=== PATIENT | male | born 1950 | race Caucasian/White ===

== ENCOUNTER → 2023-05-12 09:19 | Outpatient (CLI) | payer MEDICARE, OTHER, SELFPAY ==
--- NOTE | 2023-05-12 | DI.ECHO.S_ITS ---
[facility] +---------+ : : [address] : : : : [id number] : : : : Phone: [phone]+ Echocardiogram Report + + :Name: TONJA BETHEA Study Date: 05/12/2023 Height: 74 in : :[facility] ReadingLocation: Weight: 215 lb : : Gender: Male BSA: 2.2 m2 : :: 1950 Age: 72 yrs BP: 132/80 mmHg: :Reason For Study: DYSPNEA ON EXERTION : :Ordering Physician: CADE, : :REBEL Performed By: Malia Juárez : :Referring: REBEL UP : + + Interpretation Summary 1) Normal left ventricular thickness, size, wall motion, and systolic function (EF 60-65%). 2) Normal right ventricular size with low normal function. 3) The left atrium is severely dilated, 4) There is mild mitral regurgitation. 5) No prior Echo available for comparison. Procedure: A two-dimensional transthoracic echocardiogram with color flow and Doppler was performed. The study quality was technically adequate. There is no prior echocardiogram noted for this patient. The patient was in sinus rhythm with heart rates between 61-73 bpm during the exam. Left Ventricle: The left ventricle is normal in size and wall thickness. The ejection fraction is estimated to be 60-65%. Left ventricular systolic function appears normal without focal wall motion abnormalities. Diastolic parameters suggest a relaxation abnormality of the left ventricle, consistent with probable normal filling pressures. Right Ventricle: The right ventricle is normal size. Right ventricular systolic function is at the lower limits of normal. Atria: The left atrium is severely dilated. Right atrial size is normal. There is no Doppler evidence for an interatrial shunt. Mitral Valve: The mitral valve is grossly normal. There is mild mitral regurgitation. Aortic Valve: The aortic valve is trileaflet. There is mild aortic valve sclerosis. There is no aortic valve stenosis. No aortic regurgitation is present. Tricuspid Valve: The tricuspid valve is normal in structure and function. There is mild tricuspid regurgitation. The right ventricular systolic pressure is estimated to be at least 30 mmHg based on an estimated right atrial pressure of 8 mm Hg. Pulmonic Valve: The pulmonic valve leaflets are thin and pliable; valve motion is normal. There is trace pulmonic regurgitation. Great Vessels: The aortic root is normal size. The dimensions of the ascending aorta are normal. The IVC is dilated (diameter is greater than 2.1 cm) yet it collapses greater than 50% with a sniff. This suggests a right atrial pressure of 8 mm Hg. Pericardium/ Pleura There is no pericardial effusion. There is no pleural effusion. MMode/2D Measurements & Calculations LVIDd: 4.9 cm LVOT diam: 2.1 cm LVIDs: 3.1 cm Ao root diam: 3.1 cm FS: 36.0 % asc Aorta Diam: 3.2 cm IVSd: 0.96 cm Ao Arch Diam (Prox Trans): 3.3 cm LVPWd: 1.1 cm LV yeh. diameter/BSA (cm/m^2): 2.2 LV sys. diameter/BSA (cm/m^2): 1.4 LA A2 area: 32.9 cm2 RA long axis: 5.7 cm LA A4 area: 30.2 cm2 RA area: 21.7 cm2 LA length (vol): 6.9 cm RA vol: 70.0 ml LA vol: 121.6 ml RA : 31.2 ml/m2 LA vol index: 54.3 ml/m2 IVC diam: 2.6 cm RVD1 (basal): 3.9 cm RVD2 (mid): 2.8 cm TAPSE: 1.6 cm Doppler Measurements & Calculations Ao V2 max: 133.6 cm/sec LVOT Max Wisam: 105.9 cm/sec Ao V2 mean: 93.7 cm/sec LV V1 max P.5 mmHg Ao max P.2 mmHg LV V1 VTI: 19.8 cm Ao mean P.9 mmHg GAYATHRI(I,D): 2.6 cm2 Ao V2 VTI: 26.4 cm GAYATHRI(V,D): 2.7 cm2 sev ratio: 0.75 GAYATHRI indexed to BSA (cm^2/m^2): 1.1 MV E max wisam: 86.1 cm/sec TR max wisam: 234.2 cm/sec MV A max wisam: 1.6 cm/sec TR max P.9 mmHg MV E/A: 54.9 PA V2 max: 119.3 cm/sec Med Peak E' Wisam: 7.9 cm/sec PA V2 mean: 88.8 cm/sec E/E' med: 10.8 PA mean P.5 mmHg Lat Peak E' Wisam: 11.8 cm/sec PA pr(Accel): 32.8 mmHg E/E' lat: 7.3 E/e' average: 9.1 MV dec time: 0.25 sec SV(LVOT): 67.3 ml Reading Physician:12:26 PM
--- NOTE | 2023-05-13 11:06 | DI.NM.S_ITS ---
DATE OF SERVICE: PROCEDURE: Pharmacological perfusion study. INDICATIONS: Shortness of breath with underlying persistent atrial fibrillation, hypertension. RADIOPHARMACEUTICAL: 25.5 millicurie technetium-99m Myoview IV was injected at stress and 12.7 millicurie technetium-99m Myoview IV was injected at rest. CARDIAC STRESS: The patient underwent IV Lexiscan perfusion study under the supervision of an attending staff using standard IV Lexiscan as per protocol. The patient remained hemodynamically stable. Resting blood pressure 138/92. Baseline rhythm AFib with controlled rate. During stress, no convincing new ischemic changes seen. No new significant arrhythmias seen. The patient has mild shortness of breath with Lexiscan infusion. RAW DATA: The patient's weight is 215 pounds. Increased subdiaphragmatic activity. GATED STUDY: Resting LV ejection fraction 67 and stress LV ejection fraction 71% without any obvious wall motion abnormalities. Resting end-diastolic volume 123 mL. TID ratio 0.94, which is within normal limits. Lung/heart ratio 0.33, which is within normal limits. MYOCARDIAL PERFUSION SCAN: Stress supine, resting supine and stress prone images were compared to each other. Stress supine and resting supine images revealed small size, mildly decreased perfusion of basal inferior wall as well as distal anterior wall, which got resolved during stress prone images suggestive of tissue attenuation artifact. No convincing ischemia or infarction pattern seen. CONCLUSION: I will call this study likely a normal myocardial perfusion study with evidence of tissue attenuation artifact, which got improved during stress prone images. Preserved left ventricular function. Baseline persistent atrial fibrillation. Rate is controlled. Overall, low-risk myocardial perfusion scan. Hal Rand - SAMUEL/brandee/soraida doc#: [id number]/job#: [id number] dd: 05/12/2023 16:59:00 dt: 05/12/2023 21:19:00 DICTATING MD/COPIES TO: Jayro Zapata MD COPIES MNE: SNEHAL;
== END ==
PROVIDERS: PCP Family Medicine; Referring Provider Internal Medicine Cardiovascular Disease; Visit Provider Internal Medicine Cardiovascular Disease
DX: I08.3 Combined rheumatic disorders of mitral, aortic and tricuspid valves (principal); R06.09 Other forms of dyspnea
CPT/HCPCS: 78452; 93017; 93306; A9502; J2785

== ENCOUNTER 2024-03-02 20:43 | Emergency (ER) | payer MEDICARE, OTHER, SELFPAY ==
[2024-03-02] VITALS (7 sets, daily range): BP systolic 130–149; BP diastolic 67–91; PULSE 72–85; RESP 16; TEMP 36.9; O2SAT 96–98; BMI 27.8
--- NOTE | 2024-03-02 21:02 | DI.RAD.S_ITS ---
PROCEDURE: XR HAND RT MIN 3V INDICATIONS: cut on wire/redness/streaking/swelling TECHNIQUE: 3 views of the hand(s) acquired. COMPARISON: None. FINDINGS: Bones: No fractures or dislocations. Degenerative changes of the interphalangeal joints. Carpal bones are normally aligned. No suspicious bony lesions. Soft tissues: No suspicious soft tissue calcifications. IMPRESSION: No acute bony abnormality. Dictated by: Mitesh Nickerson M.D. on 03/02/2024 at 21:28 Approved by: Mitesh Nickerson M.D. on 03/02/2024 at 21:28
[2024-03-02 21:30] LABS: Add Manual Diff / Slide Review NO; Basophils Absolute Auto 0 /uL (0-100); Basophils Percent Auto 0.3 % (0-2); Eosinophils Absolute Auto 200 /uL (0-450); Eosinophils Percent Auto 1.9 % (2-4); Hematocrit 43.8 % (41-53); Hemoglobin 15.1 g/dL (13.5-17.5); Lymphocytes Absolute Auto 1600 /uL (1100-4500); Lymphocytes Percent Auto 12.2 % (25-40); Mean Corpuscular HGB Conc 34.4 % (30-36); Mean Corpuscular Hemoglobin 34.9 PG (26-34); Mean Corpuscular Volume 101.4 fL (80-100); Monocytes Absolute Auto 1500 /uL (0-900); Monocytes Percent Auto 11.8 % (3-14); Neutrophils Absolute Auto 9600 /uL (1500-7000); Neutrophils Percent Auto 73.8 % (50-75); Platelet Count 216 X10^3/uL (150-400); Red Blood Cell Count 4.32 X10^6/uL (4.5-5.9)
[2024-03-02 21:38] LABS: Alanine Aminotransferase 38 IU/L (<50); Albumin 4.7 g/dL (3.5-5.0); Albumin Globulin Ratio 1.5 (1.0-2.8); Alkaline Phosphatase 89 U/L (38-126); Aspartate Aminotransferase 36 IU/L (17-59); BUN Creatinine Ratio 17.5 (6-22); Bilirubin Total 1.4 mg/dL (0.2-1.3); Blood Urea Nitrogen 18 mg/dL (9-20); Calcium 9.2 mg/dL (8.4-10.2); Carbon Dioxide 22 mmol/L (22-32); Chloride 107 mmol/L (98-107); Estimated Glomerular Filt Rate > 60 mL/min (>60); Globulin 3.2 g/dL (1.7-4.1); Glucose 133 mg/dL (80-110); HEMOLYSIS 22 (0-50); Lactate (Lactic Acid) 2.5 mmol/L (0.7-2.1); Lipase 56 U/L (23-300); Potassium 3.9 mmol/L (3.4-5.1); Sodium 139 mmol/L (137-145); Total Protein 7.9 g/dL (6.3-8.2)
[2024-03-02] MEDS: TET,DIPH,PERTUSS(ACELL),VAC/PF 0.5 ML SYRINGE IM (21:43)
[2024-03-02 21:50] LABS: INR 1.3 (0.9-1.3); PTT Partial Thromboplastin Tim 40 SECONDS (25.1-36.5); Prothrombin Time 15.1 SECONDS (9.4-12.5)
[2024-03-02 22:54] LABS: Reflexed Lactate in 2 Hours Y
[2024-03-02 23:23] LABS: Lactate 2HR (Lactic Acid Rflx) 1.8 mmol/L (0.7-2.1)
--- NOTE | 2024-03-02 23:26 | ED_ITS ---
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 He notes that he will often have times with his psoriatic arthritis with significant synovitis and did not attribute the slight swelling and irritation to that joint to infection until today. He believes that he may have scratched it with some wire while working outside 4 days ago but does not recall a specific traumatic incident. Today he notice increasing redness over the joint, fullness over the dorsum of the hand, chills and general malaise. When his asked him to pull up his sleep he was also found to have lymphangitic streaking up the medial aspect of his arm. He is flushed and feels warm to the touch but temperature when taken is not elevated. He has not hypoxic nor tachycardic. He has not complaining of dyspnea, palpitations, abdominal pain, nausea, vomiting, diarrhea Related Data Home Medications Medication Instructions Recorded Confirmed ascorbate calcium (vitamin C) PO DAILY 01/14/23 01/14/23 cholecalciferol (vitamin D3) PO DAILY 01/14/23 01/14/23 coenzyme Q10 [Ultra CoQ10] PO DAILY 01/14/23 01/14/23 fish ofr-lvuuq-5-vit C-vit E PO DAILY 01/14/23 01/14/23 infliximab 100 mg intravenous IV Q8W 01/14/23 01/14/23 solution (Remicade) leucovorin calcium 5 mg tablet 5 mg PO DAILY 01/14/23 01/14/23 levothyroxine 88 mcg capsule 88 mcg PO DAILY 01/14/23 01/14/23 methotrexate sodium (PF) 50 mg mg .Route QWEEK 01/14/23 01/14/23 solution for injection pediatric multivitamin PO DAILY 01/14/23 01/14/23 [multivitamin] rivaroxaban 20 mg tablet (Xarelto) 20 mg PO DAILY 01/14/23 01/14/23 Previous Rx's Medication Instructions Recorded amlodipine 10 mg tablet 10 mg PO DAILY blood pressure #90 03/23/23 tabs doxycycline hyclate 100 mg capsule 100 mg PO BID #20 caps 03/02/24 Allergies Allergy/AdvReac Type Severity Reaction Status Date / Time No Known Drug Allergies Allergy Verified 03/02/24 20:53 Review of Systems Review of Systems Narrative: Pertinent positive and negative findings as per HPI Patient History Medical History Eczema Psoriatic arthritis (~2011) Asthma (~1958) Allergies (~1955) Kyphosis Scoliosis Gout (~1998) Ankle pain Vertigo (~2007) Tinnitus (~2004) Hearing loss (~1999) Diverticular disease (~2013) Basal cell carcinoma (~2009) Hypothyroid Psoriasis Benign essential HTN (~2006) Atrial fibrillation, persistent (~2009) Surgical History Anesthesia Family History Father Cancer History of heart disease Hypertension Hyperlipidemia Mother Hypertension History of heart disease Sister Rheumatoid arthritis Sister Rheumatoid arthritis Sister Psoriatic arthritis Social History Smoking Status: Former smoker Smoking Status: Former smoker Substance Use Type: does not use Exam Initial Vital Signs Initial Vital Signs: Vital Signs Temperature 98.4 F 03/02/24 20:46 Pulse Rate 85 03/02/24 20:46 Respiratory Rate 16 03/02/24 20:46 Blood Pressure 141/71 H 03/02/24 20:46 Pulse Oximetry 96 03/02/24 20:46 Oxygen Delivery Method Room Air 03/02/24 20:46 General: Healthy appearing, in no acute distress. Able to give a complete and coherent history. Slightly flushed and warm to the touch HEENT: Moist mucous membranes, normal sclera with reactive pupils, Respiratory: Lungs are clear to auscultation, no wheezing no rales no rhonchi. Full and symmetrical air movement Cardiac: Heart is irregular with a 3/6 blowing systolic murmur Abdomen: Soft, nontender, good bowel tones, no flank pain Skin: Flushed but overall well perfused Neurologic: Grossly neurologically intact with no obvious asymmetries or abnormalities Extremities: Right hand with swelling and scratch over the dorsal surface middle finger PIP joint with swelling over the dorsum and lymphangitic streaking of the arm. No obvious abscess or drainage Psych: Cooperative, appropriate insight and affect Course Orders Ordered: ED Orders 03/02/24 21:00 RT Consult Eval and Treat NOW 03/02/24 21:02 XR hand RT min 3V Stat 03/02/24 21:05 Complete Blood Count AUTO DIFF Stat Comprehensive Metabolic Panel Stat Lactate (Lactic Acid) Stat Lipase Stat PTT Partial Thromboplastin Jules Stat Procalcitonin Stat Prothrombin Time INR Stat 03/02/24 21:30 Blood Culture Stat Discontinued Medications Diphtheria/Tetanus/Acell Pertussis (Tet,Diph,Pertuss(Acell),Vac/Pf 0.5 Ml Syringe) 0.5 ml IM .ONCE ONE Stop: 03/02/24 21:23 Last Admin: 03/02/24 21:43 Dose: 0.5 ml Documented By: NORMA Sodium Chloride (Normal Saline 0.9%) 1,000 mls @ 1,000 mls/hr IV BOLUS ONE Stop: 03/03/24 00:26 Last Infusion: 03/03/24 00:56 Dose: Infused Documented By: Admin: 03/02/24 23:46 Dose: 1,000 mls/hr Documented By: NORMA Ceftriaxone Sodium 2,000 mg/ (Sodium Chloride) 100 mls @ 200 mls/hr IV NOW ONE Stop: 03/02/24 23:28 Last Infusion: 03/03/24 00:20 Dose: Infused Documented By: Admin: 03/02/24 23:46 Dose: 200 mls/hr Documented By: NORMA Ondansetron HCl (Ondansetron 4 Mg/2 Ml Inj) 4 mg IV NOW PRN PRN Reason: Nausea And Vomiting Ondansetron HCl (Ondansetron 4 Mg Odt) 4 mg SL NOW PRN PRN Reason: Nausea And Vomiting Vital Signs Vital signs: Vital Signs - 8 hr 03/02/24 20:46 03/02/24 21:48 03/02/24 22:00 Temperature 98.4 F Pulse Rate 85 73 Respiratory Rate 16 Blood Pressure 141/71 H Pulse Oximetry 96 98 98 Oxygen Delivery Method Room Air 03/02/24 22:03 03/02/24 22:03 03/02/24 22:30 Temperature Pulse Rate 74 76 Respiratory Rate Blood Pressure 136/79 Pulse Oximetry 98 98 Oxygen Delivery Method 03/02/24 22:30 03/02/24 23:00 03/02/24 23:00 Temperature Pulse Rate 72 Respiratory Rate Blood Pressure 130/78 130/67 Pulse Oximetry 97 Oxygen Delivery Method 03/02/24 23:30 03/02/24 23:30 03/03/24 00:00 Temperature Pulse Rate 81 Respiratory Rate Blood Pressure 149/91 H 148/81 H Pulse Oximetry 96 Oxygen Delivery Method 03/03/24 00:00 03/03/24 00:30 03/03/24 00:30 Temperature Pulse Rate 80 66 Respiratory Rate Blood Pressure 144/82 H Pulse Oximetry 96 96 Oxygen Delivery Method Medical Decision Making Lab Data 03/02/24 21:05 03/02/24 21:05 Labs: Lab Results 03/02/24 03/02/24 Range/Units 21:05 23:06 WBC 13.0 H (4.5-11.0) X10^3/uL RBC 4.32 L (4.5-5.9) X10^6/uL Hgb 15.1 (13.5-17.5) g/dL Hct 43.8 (41-53) % MCV 101.4 H (80-100) fL MCH 34.9 H (26-34) PG MCHC 34.4 (30-36) % RDW 13.0 (11.6-14.8) % Plt Count 216 (150-400) X10^3/uL Neut % (Auto) 73.8 (50-75) % Lymph % (Auto) 12.2 L (25-40) % Carolina % (Auto) 11.8 (3-14) % Eos % (Auto) 1.9 L (2-4) % Baso % (Auto) 0.3 (0-2) % Neut # (Auto) 9600 H (1363-0501) /uL Lymph # (Auto) 1600 (5006-6345) /uL Carolina # (Auto) 1500 H (0-900) /uL Eos # (Auto) 200 (0-450) /uL Baso # (Auto) 0 (0-100) /uL PT 15.1 H (9.4-12.5) SECONDS INR 1.3 (0.9-1.3) APTT 40 H (25.1-36.5) SECONDS Sodium 139 (137-145) mmol/L Potassium 3.9 (3.4-5.1) mmol/L Chloride 107 (98-107) mmol/L Carbon Dioxide 22 (22-32) mmol/L BUN 18 (9-20) mg/dL Creatinine 1.03 (0.66-1.25) mg/dL Estimated GFR > 60 (>60) mL/min BUN/Creatinine Ratio 17.5 (6-22) Glucose 133 H (80-110) mg/dL Lactate 2.5 H 1.8 (0.7-2.1) mmol/L Calcium 9.2 (8.4-10.2) mg/dL Total Bilirubin 1.4 H (0.2-1.3) mg/dL AST 36 (17-59) IU/L ALT 38 (<50) IU/L Alkaline Phosphatase 89 (38-126) U/L Total Protein 7.9 (6.3-8.2) g/dL Albumin 4.7 (3.5-5.0) g/dL Globulin 3.2 (1.7-4.1) g/dL Albumin/Globulin Ratio 1.5 (1.0-2.8) Lipase 56 (23-300) U/L Procalcitonin 0.10 (<0.5) ng/mL MDM Narrative Medical decision making narrative: CC: Infection right middle finger with lymphangitic streaking, chills and general malaise developing today Complicating co-morbidities: Psoriatic arthritis on immune modulating medications, anticoagulated for his atrial fibrillation Data collected from: patient, who is a physician Differential considered: Abscess, deep tissue infection, superficial cellulitis with lymphangitic streaking Exam documented above, pertinent findings include: Swelling to the PIP joint middle finger without obvious fluctuance or drainage. Swelling over the dorsum of the hand and lymphangitic streaking Lab Test results independently reviewed as above. Pertinent findings: CBC with mild leukocytosis at 13, Chemistries are notable for normal renal function, bilirubin slightly elevated at 1.4 Procalcitonin is not elevated Lipase is normal lactic acid is elevated at 2.5, repeat is 1.8 Imaging studies independently reviewed: X-ray of the hand does not show significant bony involvement, no subcutaneous air in no obvious abnormalities around the infected joint Treatments: 1 L of fluid, 2 g of IV ceftriaxone Discussion: 73-year-old gentleman with cellulitis of the right middle finger with lymphangitic streaking, mild leukocytosis but no evidence of sepsis. With shared decision-making between the patient and his , a physician, recognizing that they live close to the hospital and can easily returns we chose to allow him to be discharged home after the IV ceftriaxone is administered. Start him on doxycycline for the next 10 days along with instructions to return should symptoms continue to worsen and recognition that he is at risk for complications given his psoriatic arthritis and immune modulating medications. He and his both expressed clear understanding of this I believe discharge home is safe. They do understand that if his blood cultures returned positive you will be called and asked to return to the emergency department. They will follow up if symptoms worsen Discharge Plan Departure Patient Disposition: Home Clinical Impression: Cellulitis of hand, right Instructions: DI for Cellulitis -- Adult Activity Restrictions/Additional Instructions: Thank you for coming in today Your lactic acid was initially elevated at 2.5 and came down to 1.8. Your white blood cell count was slightly elevated at 13. You were given 2 g of IV ceftriaxone to treat the infection that is started in your right finger. Typically takes approximately 24 hours for the redness to begin to recede and the streaking up your arm to improve. If your blood cultures do return positive we will call you and ask you to return to the emergency department for additional IV antibiotics. In the meantime, I am going to suggest you begin oral doxycycline for 10 days and I have given you a prescription for such. If you find that you are getting worse, you have any additional concerns you do need to return to the emergency department Prescriptions: New doxycycline hyclate 100 mg capsule 100 mg PO BID Qty: 20 0RF No Action amlodipine 10 mg tablet 10 mg PO DAILY Qty: 90 3RF levothyroxine 88 mcg capsule 88 mcg PO DAILY methotrexate sodium (PF) 50 mg recon soln .Route QWEEK Rx Instructions: 0.6mL once a week Xarelto 20 mg tablet 20 mg PO DAILY Rx Instructions: must administer with evening meal infliximab [Remicade] 100 mg recon soln IV Q8W cholecalciferol (vitamin D3) PO DAILY fish qlm-[id number]-4-vit C-vit E PO DAILY ascorbate calcium (vitamin C) PO DAILY pediatric multivitamin [multivitamin] PO DAILY coenzyme Q10 [Ultra CoQ10] PO DAILY leucovorin calcium 5 mg tablet 5 mg PO DAILY Referrals: Montse Palencia DO [Primary Care Provider] - Stand Alone Forms: Patient Portal/API
[2024-03-02] MEDS: SODIUM CHLORIDE 0.9% 1,000 ML 1000 ML IV (23:46)
[2024-03-02] MEDS: cefTRIAXone 2,000 MG in SODIUM CHLORIDE 0.9% 100 ML 200 MG IV (23:46)
[2024-03-03] VITALS: BP 148/81; PULSE 80; O2SAT 96
[2024-03-03 00:30] VITALS: BP 144/82; PULSE 66; O2SAT 96
== END 2024-03-03 01:07 | disposition home or self-care (01) ==
PROVIDERS: Emergency Provider Emergency Medicine; PCP Family Medicine
DX: L03.113 Cellulitis of right upper limb (principal); Z79.899 Other long term (current) drug therapy; Z79.01 Long term (current) use of anticoagulants; Z23 Encounter for immunization
CPT/HCPCS: 36415; 73130; 80053; 83605; 83690; 84145; 85025; 85610; 85730; 87040; 90471; 96365; 99284; 90715; J0696

== ENCOUNTER → 2024-12-09 10:18 | Outpatient (CLI) | payer MEDICARE, OTHER, SELFPAY ==
[2024-12-09 11:13] LABS: Add Manual Diff / Slide Review NO; Basophils Absolute Auto 0 /uL (0-100); Basophils Percent Auto 0.5 % (0-2); Eosinophils Absolute Auto 200 /uL (0-450); Eosinophils Percent Auto 2.5 % (2-4); Hematocrit 47.2 % (41-53); Hemoglobin 16.2 g/dL (13.5-17.5); Lymphocytes Absolute Auto 2700 /uL (1100-4500); Lymphocytes Percent Auto 40.7 % (25-40); Mean Corpuscular HGB Conc 34.2 % (30-36); Mean Corpuscular Hemoglobin 34.3 PG (26-34); Mean Corpuscular Volume 100.2 fL (80-100); Monocytes Absolute Auto 1000 /uL (0-900); Monocytes Percent Auto 14.4 % (3-14); Neutrophils Absolute Auto 2800 /uL (1500-7000); Neutrophils Percent Auto 41.9 % (50-75); Platelet Count 228 X10^3/uL (150-400); Red Blood Cell Count 4.71 X10^6/uL (4.5-5.9); Red Cell Distribution Width 13.3 % (11.6-14.8); White Blood Cell Count 6.7 X10^3/uL (4.5-11.0)
[2024-12-09 11:38] LABS: Hemoglobin A1C% w Est Avg Glu 5.6 % (4.0-6.0)
[2024-12-09 11:55] LABS: Cholesterol 206 mg/dL (140-199); HDL Cholesterol 34 mg/dL (40-60); LDL Cholesterol Calculated 113 mg/dL (<100); Triglycerides 294 mg/dL (35-150)
[2024-12-09 12:22] LABS: TSH w/ Reflex to FT4 3.68 uIU/mL (0.47-4.68)
== END ==
PROVIDERS: PCP Family Medicine; Referring Provider Family Medicine; Visit Provider Family Medicine
DX: Z00.00 Encounter for general adult medical examination without abnormal findings (principal); E03.9 Hypothyroidism, unspecified; L40.9 Psoriasis, unspecified; I10 Essential (primary) hypertension; I48.19 Other persistent atrial fibrillation
CPT/HCPCS: 36415; 80061; 83036; 84443; 85025